=== PATIENT | male | born 1945 | race African-American/Black ===

== ENCOUNTER 2019-03-07 20:19 | Emergency (ER) | payer MEDICARE, MEDICAID ==
[~2019-03-07] VITALS: Ht 180.3 cm; Wt 80.0 kg
[~2019-03-07 20:19] MED LIST: AMLO10TA80 PO; BRIM5DRO OP; NEPVIT PO; TRAV2.5D EACHEYE
[2019-03-07] MEDS ORDERED: KETOROLAC 30MG/ML VIAL IV STA (22:11)
[2019-03-07] MEDS ORDERED: ASPIRIN 81MG TABLET PO ONE (22:15)
[2019-03-07] MEDS ORDERED: NITROGLYCERIN 0.4MG TABLET SL SL PRN (22:15)
[2019-03-07 23:08] LABS: BASOPHILS % 0.6 % (0.0-2.0); EOSINOPHILS % 2.8 % (0.0-5.0); HEMATOCRIT. 39.4 % (42.0-52.0); HEMOGLOBIN. 13.5 g/dL (14.0-18.0); MEAN CORPUSCULAR HEMOGLOBIN 32.8 pg (28.0-32.0); MEAN CORPUSCULAR VOLUME 95.5 fL (80.0-94.0); MEAN PLATELET VOLUME 7.6 fl (7.4-10.4); MONOCYTES % 9.8 % (2.0-8.0); NEUTROPHILS % 57.8 % (40.0-76.0); PLATELET 398 x1000/uL (130-400); RED BLOOD CELL COUNT 4.12 mill/uL (4.7-6.1); RED CELL DISTRIBUTION WIDTH 14.2 % (11.6-14.6)
[2019-03-07 23:13] LABS: CHLORIDE 98 mEq/L (98-107)
[2019-03-08 02:54] VITALS: BP 145/95
== END 2019-03-08 02:56 | disposition home or self-care (01) ==
LOC: ER 21:04
DX: R07.89 Other chest pain (principal); R51 Headache; J45.909 Unspecified asthma, uncomplicated; I10 Essential (primary) hypertension; F17.200 Nicotine dependence, unspecified, uncomplicated; Z79.899 Other long term (current) drug therapy
CPT/HCPCS: 36415; 71045; 80053; 83880; 84484; 85025; 93005; 96374; 99284; J1885

== ENCOUNTER 2019-11-09 10:21 | Inpatient (IN) | payer MEDICARE, MEDICAID ==
[~2019-11-09] VITALS: Ht 175.3 cm; Wt 61.7 kg
[2019-11-09 14:04] LABS: BASOPHILS % 0.5 % (0.0-2.0); EOSINOPHILS % 11.2 % (0.0-5.0); LYMPHOCYTES % 10.6 % (20.0-50.0); MEAN CORPUSCULAR HEMOGLOBIN 32.8 pg (28.0-32.0); MEAN CORPUSCULAR VOLUME 98.1 fL (80.0-94.0); MEAN PLATELET VOLUME 8.1 fl (7.4-10.4); MONOCYTES % 10.3 % (2.0-8.0); NEUTROPHILS % 67.4 % (40.0-76.0); PLATELET 404 x1000/uL (130-400); RED BLOOD CELL COUNT 3.98 mill/uL (4.7-6.1); RED CELL DISTRIBUTION WIDTH 14.5 % (11.6-14.6)
[2019-11-09 14:08] LABS: CHLORIDE 104 mEq/L (98-107)
[2019-11-09] MEDS ORDERED: ASPIRIN 325MG EC TABLET PO ONE (15:45)
[2019-11-09] MEDS ORDERED: HYDRALAZINE 20MG/ML VIAL IV ONE (17:00)
[2019-11-09] MEDS ORDERED: NA PHOS,M-B/NA PHOS,DI-BA ENEMA 118ML PR PRN (18:45)
[2019-11-09] MEDS ORDERED: CLONIDINE 0.1MG TABLET PO PRN (18:45)
[2019-11-09] MEDS ORDERED: IPRATROPIUM/ALBUTEROL 0.5-3(2.5)MG/3ML NEB NEB PRN (18:45)
[2019-11-09] MEDS ORDERED: MAGNESIUM/ALUMINUM HYDROXIDE/SIMETHICONE 30ML UDC PO PRN (18:45)
[2019-11-09] MEDS ORDERED: DIPHENHYDRAMINE 50MG/ML VIAL IV PRN (18:45)
[2019-11-09] MEDS ORDERED: GUAIFENESIN 200MG/10ML SUGAR FREE UDC PO PRN (18:45)
[2019-11-09] MEDS ORDERED: ONDANSETRON HCL 4MG/2ML INJ IV PRN (18:45)
[2019-11-09] MEDS ORDERED: DOCUSATE SODIUM 100MG CAPSULE PO PRN (18:45)
[2019-11-09] MEDS ORDERED: ACETAMINOPHEN 325MG TABLET PO PRN (18:45)
[2019-11-09] MEDS ORDERED: LORAZEPAM 2MG/ML CPJ IV PRN (18:45)
[2019-11-09] MEDS ORDERED: MORPHINE SULFATE 2 MG/ML CPJ (NOT FOR IM USE) IV PRN (18:45)
[2019-11-09] MEDS ORDERED: HYDROCODONE/ACETAMINOPHEN 5/325MG TABLET PO PRN (18:45)
[2019-11-09 21:00] VITALS: BP 140/91
[2019-11-09 21:49] VITALS: BP 140/99
[2019-11-09] MEDS: METOPROLOL TARTRATE 25MG TABLET PO SCH (22:09)
[2019-11-09] MEDS: ENOXAPARIN 40MG/0.4ML SYR SUBCUT SCH (22:11)
[2019-11-09] MEDS ORDERED: [UNRECOGNIZED DRUG - CODE] TOP (23:04)
[2019-11-10] VITALS: BP 121/83
[2019-11-10 04:00] VITALS: BP 119/75
[2019-11-10 05:39] LABS: HEMOGLOBIN. 11.9 g/dL (14.0-18.0); MEAN CORPUSCULAR HEMOGLOBIN 32.9 pg (28.0-32.0); MEAN CORPUSCULAR VOLUME 97.2 fL (80.0-94.0); MEAN PLATELET VOLUME 8.7 fl (7.4-10.4); PLATELET 373 x1000/uL (130-400); RED CELL DISTRIBUTION WIDTH 14.4 % (11.6-14.6)
[2019-11-10 06:01] LABS: CHLORIDE 109 mEq/L (98-107)
[2019-11-10 06:09] LABS: LDL CHOLESTEROL 45 mg/dL (5-100)
[2019-11-10 06:10] LABS: HDL CHOLESTEROL 76 mg/dL (40-59)
[2019-11-10 06:11] LABS: T4 FREE 0.98 ng/dL (0.76-1.46)
[2019-11-10 08:00] VITALS: BP 137/92
[2019-11-10] MEDS: FUROSEMIDE 40MG/4ML VIAL IV SCH (08:57)
[2019-11-10] MEDS: LISINOPRIL 20MG TABLET PO SCH (08:57)
[2019-11-10] MEDS: AMLODIPINE 10MG TABLET PO SCH (08:57)
[2019-11-10] MEDS: ASPIRIN 81MG EC TABLET PO SCH (08:58)
[2019-11-10] MEDS: METOPROLOL TARTRATE 25MG TABLET PO SCH ×2 (08:58→21:06)
[2019-11-10 12:00] VITALS: BP 126/75
[2019-11-10 12:33] LABS: PLATELET ESTIMATE NORMAL
[2019-11-10 16:00] VITALS: BP 129/80
[2019-11-10] MEDS ORDERED: IOHEXOL-350 100 ML BOTTLE ONE ×2 (16:02→18:20)
[2019-11-10 16:41] LABS: CHLORIDE 104 mEq/L (98-107)
[2019-11-10 16:53] LABS: CREATINE KINASE 94 IU/L (39-308)
[2019-11-10 16:54] LABS: CREATINE KINASE MB FRACTION < 1.0 ng/mL (0.5-3.6)
[2019-11-10 20:00] VITALS: BP 119/81
[2019-11-10] MEDS: ENOXAPARIN 40MG/0.4ML SYR SUBCUT SCH (21:00)
[2019-11-11] VITALS (7 sets, daily range): BP systolic 94–118; BP diastolic 65–81
[2019-11-11 00:38] LABS: CREATINE KINASE 90 IU/L (39-308)
[2019-11-11 00:39] LABS: CREATINE KINASE MB FRACTION < 1.0 ng/mL (0.5-3.6)
[2019-11-11 06:47] LABS: CREATINE KINASE 72 IU/L (39-308)
[2019-11-11 06:48] LABS: CREATINE KINASE MB FRACTION < 1.0 ng/mL (0.5-3.6)
[2019-11-11] MEDS: FUROSEMIDE 40MG/4ML VIAL IV SCH (09:29)
[2019-11-11] MEDS: AMLODIPINE 10MG TABLET PO SCH (09:29)
[2019-11-11] MEDS: ASPIRIN 81MG EC TABLET PO SCH (09:29)
[2019-11-11] MEDS: LISINOPRIL 20MG TABLET PO SCH (09:30)
[2019-11-11] MEDS: METOPROLOL TARTRATE 25MG TABLET PO SCH ×2 (09:30→21:00)
[2019-11-11] MEDS ORDERED: REGADENOSON 0.4 MG/5 ML IV ONE (12:00)
[2019-11-11] MEDS: ENOXAPARIN 40MG/0.4ML SYR SUBCUT SCH (21:25)
[2019-11-12] VITALS (7 sets, daily range): BP systolic 92–141; BP diastolic 40–82
[2019-11-12] MEDS ORDERED: REGADENOSON 0.4 MG/5 ML IV ONE ×2 (07:39→09:00)
[2019-11-12] MEDS: LISINOPRIL 20MG TABLET PO SCH (09:00)
[2019-11-12] MEDS: METOPROLOL TARTRATE 25MG TABLET PO SCH ×2 (09:00→21:17)
[2019-11-12] MEDS: ASPIRIN 81MG EC TABLET PO SCH (09:00)
[2019-11-12] MEDS: FUROSEMIDE 40MG/4ML VIAL IV SCH (09:00)
[2019-11-12] MEDS: AMLODIPINE 10MG TABLET PO SCH (09:00)
[2019-11-12] MEDS ORDERED: NITROGLYCERIN 50MCG/ML 10ML VIAL (CATH LAB) IV ONE (11:38)
[2019-11-12] MEDS ORDERED: NICARDIPINE 100MCG/ML 10ML VIAL (CATH LAB) IV ONE (11:38)
[2019-11-12] MEDS ORDERED: HEPARIN SODIUM 1,000 UNIT/1ML VIAL IV ONE (11:38)
[2019-11-12] MEDS ORDERED: LIDOCAINE HCL 1% 20ML VIAL (Pyxis) INJ ONE (12:51)
[2019-11-12] MEDS ORDERED: IODIXANOL 320MG/ML 100 ML BOTTLE IV ONE ×2 (12:52→13:35)
[2019-11-12] MEDS ORDERED: FENTANYL CITRATE/PF 50MCG/ML 2ML VIAL ONE (13:02)
[2019-11-12] MEDS ORDERED: MIDAZOLAM HCL 2 MG/2 ML VIAL ONE (13:02)
[2019-11-12] MEDS ORDERED: IOHEXOL-300 100 ML BOTTLE ONE (13:35)
[2019-11-12] MEDS ORDERED: CLOPIDOGREL 75MG TABLET ONE (14:01)
[2019-11-12] MEDS ORDERED: ASPIRIN 325MG EC TABLET PO ONE (14:03)
[2019-11-12] MEDS ORDERED: MORPHINE SULFATE 2 MG/ML CPJ (NOT FOR IM USE) IV PRN (14:15)
[2019-11-12] MEDS ORDERED: ACETAMINOPHEN 325MG TABLET PO PRN (14:15)
[2019-11-12] MEDS ORDERED: ONDANSETRON HCL 4MG/2ML INJ IV PRN (14:15)
[2019-11-12] MEDS ORDERED: ATROPINE SULFATE 1MG/10ML SYR IV PRN (14:15)
[2019-11-12] MEDS ORDERED: SODIUM CHL 0.45% + KCL 20MEQ/L 1,000 ML IV SCH (16:00)
[2019-11-12] MEDS: ENOXAPARIN 40MG/0.4ML SYR SUBCUT SCH (21:17)
[2019-11-13] VITALS (8 sets, daily range): BP systolic 109–145; BP diastolic 56–97
[2019-11-13] MEDS: AMLODIPINE 10MG TABLET PO SCH (08:16)
[2019-11-13] MEDS: LISINOPRIL 20MG TABLET PO SCH (08:16)
[2019-11-13] MEDS: METOPROLOL TARTRATE 25MG TABLET PO SCH (08:17)
[2019-11-13] MEDS ORDERED: CLOPIDOGREL 75MG TABLET PO SCH (09:00)
[2019-11-13] MEDS ORDERED: ASPIRIN 325MG TABLET PO SCH (09:00)
== END 2019-11-13 12:25 | disposition home or self-care (01) | DRG 246 ==
LOC: ER 12:37 → 5WST 16:47 → ENRESERV 20:07 → 5WST 21:58 → 3WST 11-12 19:40
PROVIDERS: ADMIT Internal Medicine; ATTEND Internal Medicine
PROC: 027034Z Dilation of Coronary Artery, One Artery with Drug-eluting Intraluminal Device, Percutaneous Approach (ICD-10-PCS; principal; 2019-11-12)
PROC: 4A023N7 Measurement of Cardiac Sampling and Pressure, Left Heart, Percutaneous Approach (ICD-10-PCS; 2019-11-12)
PROC: B2111ZZ Fluoroscopy of Multiple Coronary Arteries using Low Osmolar Contrast (ICD-10-PCS; 2019-11-12)
PROC: B2151ZZ Fluoroscopy of Left Heart using Low Osmolar Contrast (ICD-10-PCS; 2019-11-12)
PROC: 4A033BC Measurement of Arterial Pressure, Coronary, Percutaneous Approach (ICD-10-PCS; 2019-11-12)
DX: I25.10 Atherosclerotic heart disease of native coronary artery without angina pectoris (principal); I50.43 Acute on chronic combined systolic (congestive) and diastolic (congestive) heart failure; E46 Unspecified protein-calorie malnutrition; I11.0 Hypertensive heart disease with heart failure; D64.9 Anemia, unspecified; M54.9 Dorsalgia, unspecified; E78.5 Hyperlipidemia, unspecified; I50.9 Heart failure, unspecified; J44.9 Chronic obstructive pulmonary disease, unspecified; Z87.891 Personal history of nicotine dependence; Z79.899 Other long term (current) drug therapy; Z68.20 Body mass index [BMI] 20.0-20.9, adult; K21.9 Gastro-esophageal reflux disease without esophagitis
CPT/HCPCS: 36415; 71045; 71275; 78452; 80048; 80053; 80061; 82550; 82553; 83036; 83880; 84439; 84443; 84484; 85025; 85347; 85379; 92928; 93005; 93017; 93306; 93458; 93571; 93971; 96374; 99285; A9500; C1769; C1874; C1887; C1893; J0360; J1644; J1650; J1940; J2250; J2785; J3010; J3480; J3490; Q9967